=== PATIENT | male | born 1950 | race Hispanic/Latino ===

== ENCOUNTER 2017-04-20 02:56 | Inpatient (IN) | payer OTHER ==
[~2017-04-20] VITALS: Ht 172.7 cm; Wt 71.7 kg
[~2017-04-20 02:56] MED LIST: ACET650S30 RC; AMIO200T2 PO; AMLO5TAB4 PO; AMOX-426 PO; ASPI81TA40 PO; BALS60OI TP; CHLO118L5 TP; CHLO473M2 MM; CILO100T PO; CLOP75TA32 PO; ENOX30DI4 SQ; FAMO20TA8 PEG; FLUT100P6 NASAL; FOLI1CAP2 PEG; FOLI1TAB15 PEG; FURO40TA5 PEG; GLUC1KIT6 IM; HYDR25TA PO; INSU100I21 SQ; INSU100V3 SQ; IPRA3AMP4 IH; LACT10SO9 PEG; LISI40TA4 PO; LORA1TAB3 PO; METF500T6 PO; METO50TA18 PO; METO5TAB7 PEG; MIDO5TAB PEG; NAPR-1192 PEG; POLY15DR57 OP; PRAV40TA3 PO; THIAM100TB PEG; TRAZ-144 PEG; [UNRECOGNIZED DRUG - CODE] IJ
[2017-04-20 03:15] LABS: BASOPHILS % (AUTO) 0.3 % (0.0-5.0); EOSINOPHILS % (AUTO) 0.3 % (0.0-8.0); HEMATOCRIT 22.8 % (42-54); LYMPHOCYTES % (AUTO) 2.8 % (21.0-51.0); MEAN CORPUSCULAR HEMOGLOBIN 28.5 pg (27.0-33.0); MEAN CORPUSCULAR HGB CONC 33.1 g/dL (32.0-36.0); MEAN CORPUSCULAR VOLUME 85.9 fL (79-99); MONOCYTES % (AUTO) 6.7 % (3.0-13.0); NEUTROPHILS % (AUTO) 89.9 % (40.0-77.0); PLATELET COUNT (AUTO) 214 K/uL (130-400); RED BLOOD CELL COUNT(AUTO) 2.65 MIL/uL (4.50-6.20); RED CELL DISTRIBUTION WIDTH 17.2 % (11.0-15.5); WHITE BLOOD COUNT (AUTO) 12.3 K/uL (4.8-10.8)
[2017-04-20 03:31] LABS: CARBON DIOXIDE 21 mmol/L (21-32); CHLORIDE 101 mmol/L (101-111); CREATININE 2.5 mg/dL (0.5-1.5); GLOMERULAR FILTR. RATE CALC 27 mL/min (>60); GLUCOSE,RANDOM 112 mg/dL (70-105); INR 1.2 (0.85-1.15); PARTIAL THROMBOPLASTIN TIME 41.2 SEC (26.3-35.5); POTASSIUM 3.9 mmol/L (3.5-5.1); PROTHROMBIN TIME 12.6 SEC (9.6-11.6); SODIUM SERUM 134 mmol/L (136-145); UREA NITROGEN, BLOOD 58 mg/dL (7-18)
[2017-04-20] MEDS ORDERED: SODIUM CHLORIDE 0.9% 1000ML 2,000 ML IV ONE (03:41)
[2017-04-20] MEDS ORDERED: LEVOFLOXACIN 750 MG/D5W 150 ML 150 ML ONE (03:41)
[2017-04-20 03:46] LABS: ALANINE AMINOTRANSFERASE 32 U/L (12-78); ALBUMIN 1.9 g/dL (3.5-5.0); ASPARTATE AMINOTRANSFERASE 45 U/L (10-37); BILIRUBIN,TOTAL 0.5 mg/dL (0.2-1.0); CREATINE KINASE MB < 0.5 ng/mL (0.5-3.6); CREATINE KINASE, TOTAL 60 U/L (21-232); MYOGLOBIN 90 ng/mL (10-92); TOTAL PROTEIN, SERUM 6.9 g/dL (6.0-8.3); TROPONIN I 0.04 ng/mL (0.00-0.06)
[2017-04-20] MEDS ORDERED: ACETAMINOPHEN 325 MG TAB ONE (04:13)
[2017-04-20] MEDS ORDERED: ACETAMINOPHEN ELIXIR 650 MG/20.3 ML UDCUP ONE (04:14)
[2017-04-20] MEDS ORDERED: IPRATROPIUM/ALBUTEROL SULFATE 3 ML SOLUTION IH ONE (04:26)
[2017-04-20 04:31] LABS: APPEARANCE,URINE Cloudy (CLEAR); BILIRUBIN,URINE Negative (NEGATIVE); COLOR,URINE Yellow (YELLOW); GLUCOSE, URINE (UA) Negative (NEGATIVE); KETONES,URINE Negative (NEGATIVE); LEUKOCYTE ESTERASE ,URINE Moderate (NEGATIVE); NITRATE,URINE Negative (NEGATIVE); OCCULT BLOOD,URINE Small (NEGATIVE); PROTEIN,URINE POS 1+ (NEGATIVE)
[2017-04-20 04:55] LABS: BACTERIA,URINE Many /HPF (None Seen); MUCUS,URINE Few LPF (None Seen); RBC,URINE 0-1 /HPF (0-1); SQUAMOUS EPITHELIAL CELL,UR Rare /LPF (0-2)
[2017-04-20] MEDS ORDERED: SODIUM CHLORIDE 0.9% 1000ML 1,000 ML IV ONE ×2 (05:15→08:16)
[2017-04-20] MEDS ORDERED: ZOSYN 3.375GM+NS 50ML 50 ML IV ONE ×2 (08:16→08:34)
[2017-04-20] MEDS ORDERED: LACTULOSE 20 GM/30 ML UDCUP PO PRN ×2 (08:30→11:15)
[2017-04-20] MEDS ORDERED: LIDOCAINE HCL-MPF 1% 2ML VIAL IJ PRN (08:30)
[2017-04-20] MEDS ORDERED: CLONIDINE HCL 0.1 MG TABLET PO PRN (08:30)
[2017-04-20] MEDS: SODIUM CHLORIDE 0.9% 1000ML 1,000 ML IV SCH ×3 (08:30→22:53)
[2017-04-20] MEDS ORDERED: GUAIFENESIN-DM 200/20 MG 10 ML PO PRN ×2 (08:30→11:15)
[2017-04-20] MEDS ORDERED: POTASSIUM CHLORIDE 20 MEQ ERTAB PO PRN (08:30)
[2017-04-20] MEDS ORDERED: ACETAMINOPHEN 325 MG TAB PO PRN ×4 (08:30→11:15)
[2017-04-20] MEDS: ZOSYN 3.375GM+NS 50ML 50 ML IV SCH ×2 (09:00→22:33)
[2017-04-20] MEDS: FAMOTIDINE 20MG TAB 20 MG TAB PO SCH ×2 (09:00→19:59)
[2017-04-20] MEDS ORDERED: ALBUTEROL SULFATE 0.083% 2.5 MG/3 ML INH IH ONE (09:22)
[2017-04-20] MEDS ORDERED: IPRATROPIUM 0.5 MG/2.5 ML INH IH ONE (09:22)
[2017-04-20] MEDS: IPRATROPIUM/ALBUTEROL SULFATE 3 ML SOLUTION IH SCH ×4 (09:30→21:57)
[2017-04-20] MEDS ORDERED: ALPRAZOLAM 0.25 MG TABLET ONE (10:47)
[2017-04-20 10:57] LABS: ABG BASE EXCESS -7.1 mmol/L (-2.0-3.0); ABG HCO3 16.7 mmol/L (21.0-28.0); ABG OXYGEN SATURATION 85.3 % (95.0-99.0); ABG PCO2 30 mmHg (35-48)
[2017-04-20] MEDS ORDERED: NITROGLYCERIN 0.4 MG SL TAB SL PRN (11:15)
[2017-04-20] MEDS ORDERED: ONDANSETRON HCL 4 MG/2 ML VIAL IV PRN (11:15)
[2017-04-20] MEDS ORDERED: MAG HYDROX/AL HYDROX/SIMETH ES 30 ML SUSP UDCUP PO PRN (11:15)
[2017-04-20] MEDS: METHYLPREDNISOLONE SOD SUCC 125MG/2ML VIAL IVP SCH ×2 (11:15→18:54)
[2017-04-20] MEDS ORDERED: ACETAMINOPHEN-CODEINE 300/30MG TAB PO PRN ×2 (11:15)
[2017-04-20] MEDS ORDERED: MORPHINE SULFATE 4 MG/1ML SYG IV PRN (11:15)
[2017-04-20] MEDS ORDERED: MORPHINE SULFATE 2 MG/ML 1ML SYG IV PRN (11:15)
[2017-04-20] MEDS ORDERED: METHYLPREDNISOLONE SOD SUCC 125MG/2ML VIAL ONE (11:26)
[2017-04-20] MEDS ORDERED: FAMOTIDINE/PF 20 MG/2 ML VIAL IV ONE ×2 (11:27→12:06)
[2017-04-20] MEDS ORDERED: ENOXAPARIN SODIUM 40 MG/0.4 ML SYRINGE SQ ONE ×2 (11:27→12:05)
[2017-04-20] MEDS ORDERED: VANCOMYCIN PROTOCOL PER PHARMACY IV PRN (11:30)
[2017-04-20] MEDS ORDERED: VANCOMYCIN 1GM+NS 250ML 250 ML IV SCH (11:30)
[2017-04-20] MEDS ORDERED: SUCCINYLCHOLINE CHLORIDE 20 MG/ML 10 ML VIAL IVP ONE (12:00)
[2017-04-20] MEDS ORDERED: ETOMIDATE 2 MG/ML 10 ML VIAL IVP ONE (12:00)
[2017-04-20] MEDS ORDERED: DOXYCYCLINE 100MG+NS 250ML 250 ML IV ONE (12:05)
[2017-04-20] MEDS ORDERED: VANCOMYCIN 1GM+NS 250ML 250 ML IV ONE (12:06)
[2017-04-20] MEDS ORDERED: COMPOUND IV REFRIGERATED 1 EACH IVSOLN MISC PRN (12:45)
[2017-04-20 13:39] VITALS: BP 102/46
[2017-04-20 13:39] LABS: % IRON SATURATION 10.2 % (30-44); FERRITIN 295 ng/mL (30-400); IRON, SERUM 10 mcg/dL (65-175); TOTAL IRON BINDING CAPACITY 98 mcg/dL (250-450)
[2017-04-20] MEDS: IRON SUCROSE COMPLEX 100 MG in SODIUM CHLORIDE 0.9% 50 ML IV SCH (14:15)
[2017-04-20] MEDS ORDERED: COMPOUND IV MISC 1 EACH IVSOLN MISC PRN (14:45)
[2017-04-20 16:00] VITALS: BP 95/46
[2017-04-20 19:33] VITALS: BP 110/50
[2017-04-20] MEDS: FAMOTIDINE/PF 20 MG/2 ML VIAL IV SCH (22:33)
[2017-04-20 23:17] VITALS: BP 114/60
[2017-04-21] MEDS: IPRATROPIUM/ALBUTEROL SULFATE 3 ML SOLUTION IH SCH ×6 (01:34→21:24)
[2017-04-21] MEDS: METHYLPREDNISOLONE SOD SUCC 125MG/2ML VIAL IVP SCH ×3 (03:20→21:48)
[2017-04-21 03:38] VITALS: BP 93/50
[2017-04-21 04:50] LABS: ABG BASE EXCESS -7.1 mmol/L (-2.0-3.0); ABG HCO3 17.3 mmol/L (21.0-28.0); ABG OXYGEN SATURATION 90.1 % (95.0-99.0); ABG PCO2 32 mmHg (35-48)
[2017-04-21 04:53] LABS: HEMATOCRIT 22.3 % (42-54); MEAN CORPUSCULAR HEMOGLOBIN 27.8 pg (27.0-33.0); MEAN CORPUSCULAR HGB CONC 32.3 g/dL (32.0-36.0); MEAN CORPUSCULAR VOLUME 86.1 fL (79-99); NUCLEATED RED BLOOD CELLS 0.1 % (0.0-0.19); PLATELET COUNT (AUTO) 188 K/uL (130-400); RED BLOOD CELL COUNT(AUTO) 2.59 MIL/uL (4.50-6.20); RED CELL DISTRIBUTION WIDTH 17.1 % (11.0-15.5)
[2017-04-21 05:06] LABS: CREATININE 2.2 mg/dL (0.5-1.5); MAGNESIUM 1.6 mg/dL (1.80-2.40); PHOSPHORUS 4.7 mg/dL (2.5-4.9)
[2017-04-21 05:08] LABS: B-TYPE NATRIURETIC PEPTIDE 626 pg/mL (0-100)
[2017-04-21 07:00] VITALS: BP 101/52
[2017-04-21] MEDS: ENOXAPARIN SODIUM 40 MG/0.4 ML SYRINGE SQ SCH (09:00)
[2017-04-21] MEDS: FAMOTIDINE 20MG TAB 20 MG TAB PO SCH ×2 (09:00→20:59)
[2017-04-21] MEDS: IRON SUCROSE COMPLEX 100 MG in SODIUM CHLORIDE 0.9% 50 ML IV SCH (10:27)
[2017-04-21] MEDS: ZOSYN 3.375GM+NS 50ML 50 ML IV SCH ×2 (10:27→21:48)
[2017-04-21] MEDS: FAMOTIDINE/PF 20 MG/2 ML VIAL IV SCH ×2 (10:27→21:48)
[2017-04-21] MEDS ORDERED: INSU100V12 SQ (10:55)
[2017-04-21] MEDS ORDERED: FERR-82 PO (10:55)
[2017-04-21 11:00] VITALS: BP 102/76
[2017-04-21] MEDS: VANCOMYCIN 750MG + NS 250 ML IV SCH ×2 (12:45)
[2017-04-21] MEDS: SODIUM CHLORIDE 0.9% 1000ML 1,000 ML IV SCH (13:34)
[2017-04-21 15:56] LABS: GLUCOSE,BODY FLUID 303 mg/dL (1-40)
[2017-04-21 15:58] LABS: PH, BODY FLUID 7
[2017-04-21 17:00] VITALS: BP 97/49
[2017-04-21 17:52] LABS: APPEARANCE BODY FLUID CLEAR (CLEAR); COLOR,BODY FLUID YELLOW (LT YELLOW); SPECIMENTYPE,BODY FLUID PLEURAL; TOTAL VOLUME,BODY FLUID 1000 mL
[2017-04-21 17:53] LABS: BODY FLUID RBC 10 /cu. mm.; BODY FLUID WBC 54 /cu. mm.
[2017-04-21 18:46] LABS: BF LYMPHOCYTE 20 %
[2017-04-21 19:40] VITALS: BP 145/82
[2017-04-21 23:42] VITALS: BP 143/50
[2017-04-22] MEDS: IPRATROPIUM/ALBUTEROL SULFATE 3 ML SOLUTION IH SCH ×6 (01:26→22:21)
[2017-04-22 03:32] LABS: HEMATOCRIT 27.6 % (42-54); MEAN CORPUSCULAR HEMOGLOBIN 28.2 pg (27.0-33.0); MEAN CORPUSCULAR HGB CONC 32.3 g/dL (32.0-36.0); MEAN CORPUSCULAR VOLUME 87.3 fL (79-99); PLATELET COUNT (AUTO) 325 K/uL (130-400); RED BLOOD CELL COUNT(AUTO) 3.16 MIL/uL (4.50-6.20); RED CELL DISTRIBUTION WIDTH 17.7 % (11.0-15.5); WHITE BLOOD COUNT (AUTO) 17.4 K/uL (4.8-10.8)
[2017-04-22 03:35] VITALS: BP 121/54
[2017-04-22] MEDS: METHYLPREDNISOLONE SOD SUCC 125MG/2ML VIAL IVP SCH ×2 (03:39→22:05)
[2017-04-22 03:57] LABS: CREATININE 2.4 mg/dL (0.5-1.5); POTASSIUM 4.2 mmol/L (3.5-5.1)
[2017-04-22 07:31] VITALS: BP 118/68
[2017-04-22] MEDS: FAMOTIDINE/PF 20 MG/2 ML VIAL IV SCH ×2 (09:32→22:04)
[2017-04-22] MEDS ORDERED: SODIUM CHLORIDE 0.9% 500ML 500 ML IV ONE (09:35)
[2017-04-22] MEDS: ENOXAPARIN SODIUM 40 MG/0.4 ML SYRINGE SQ SCH (09:35)
[2017-04-22] MEDS: LEVOFLOXACIN 500 MG/D5W 100 ML 100 ML IV SCH (09:36)
[2017-04-22] MEDS: IRON SUCROSE COMPLEX 100 MG in SODIUM CHLORIDE 0.9% 50 ML IV SCH (09:36)
[2017-04-22] MEDS ORDERED: FUROSEMIDE 10 MG/ML 2ML VIAL IV SCH ×2 (10:15→10:45)
[2017-04-22] MEDS: ZOSYN 3.375GM+NS 50ML 50 ML IV SCH ×2 (10:37→22:05)
[2017-04-22 11:19] VITALS: BP 134/74
[2017-04-22] MEDS: VANCOMYCIN 750MG + NS 250 ML IV SCH ×2 (12:20)
[2017-04-22] MEDS: HALOPERIDOL LACTATE 5 MG/ML VIAL IM PRN ×2 (12:20→18:35)
[2017-04-22] MEDS ORDERED: METHYLPREDNISOLONE SOD SUCC 125MG/2ML VIAL IVP SCH (13:15)
[2017-04-22] MEDS: ALPRAZOLAM 0.25 MG TABLET PO PRN (14:45)
[2017-04-22 16:53] VITALS: BP 138/84
[2017-04-22] MEDS: FUROSEMIDE 10 MG/ML 2ML VIAL IV SCH (17:21)
[2017-04-22 19:04] VITALS: BP 97/70
[2017-04-22 20:56] LABS: ABG BASE EXCESS -11.1 mmol/L (-2.0-3.0); ABG HCO3 19.3 mmol/L (21.0-28.0); ABG OXYGEN SATURATION 94.9 % (95.0-99.0); ABG PCO2 69 mmHg (35-48)
[2017-04-22 21:46] LABS: HEMATOCRIT 29.2 % (42-54); MEAN CORPUSCULAR HEMOGLOBIN 27.6 pg (27.0-33.0); MEAN CORPUSCULAR HGB CONC 30.6 g/dL (32.0-36.0); MEAN CORPUSCULAR VOLUME 90.1 fL (79-99); NUCLEATED RED BLOOD CELLS 0.2 % (0.0-0.19); PLATELET COUNT (AUTO) 411 K/uL (130-400); RED BLOOD CELL COUNT(AUTO) 3.24 MIL/uL (4.50-6.20); RED CELL DISTRIBUTION WIDTH 17.7 % (11.0-15.5); WHITE BLOOD COUNT (AUTO) 24.3 K/uL (4.8-10.8)
[2017-04-22 21:56] LABS: ALBUMIN 2.2 g/dL (3.5-5.0); BILIRUBIN,TOTAL 0.3 mg/dL (0.2-1.0); CREATININE 2.6 mg/dL (0.5-1.5); MAGNESIUM 1.8 mg/dL (1.80-2.40); PHOSPHORUS 5.4 mg/dL (2.5-4.9); POTASSIUM 4.6 mmol/L (3.5-5.1); TOTAL PROTEIN, SERUM 7.7 g/dL (6.0-8.3)
[2017-04-22 22:03] LABS: PLATELET MORPHOLOGY COMMENT ADEQUATE; SEGMENTED NEUTROPHILS % 100 % (40-70)
[2017-04-22 22:32] LABS: ABG BASE EXCESS -9.9 mmol/L (-2.0-3.0); ABG HCO3 18.1 mmol/L (21.0-28.0); ABG OXYGEN SATURATION 95.4 % (95.0-99.0); ABG PCO2 48 mmHg (35-48)
[2017-04-22] MEDS ORDERED: SODIUM BICARB 50MEQ 50ML VIAL ONE (23:20)
[2017-04-22] MEDS: SODIUM BICARB 8.4% 50ML SYRINGE IVP SCH (23:23)
[2017-04-22 23:55] VITALS: BP 123/76
[2017-04-23] VITALS (26 sets, daily range): BP systolic 94–117; BP diastolic 53–70
[2017-04-23] MEDS: ALPRAZOLAM 0.25 MG TABLET PO PRN (02:16)
[2017-04-23] MEDS: IPRATROPIUM/ALBUTEROL SULFATE 3 ML SOLUTION IH SCH (02:19)
[2017-04-23 04:20] LABS: ABG BASE EXCESS -6.6 mmol/L (-2.0-3.0); ABG HCO3 19.5 mmol/L (21.0-28.0); ABG OXYGEN SATURATION 98.3 % (95.0-99.0); ABG PCO2 41 mmHg (35-48)
[2017-04-23 04:33] LABS: HEMATOCRIT 26.9 % (42-54); MEAN CORPUSCULAR HEMOGLOBIN 27.3 pg (27.0-33.0); MEAN CORPUSCULAR HGB CONC 31.2 g/dL (32.0-36.0); MEAN CORPUSCULAR VOLUME 87.5 fL (79-99); PLATELET COUNT (AUTO) 284 K/uL (130-400); RED BLOOD CELL COUNT(AUTO) 3.07 MIL/uL (4.50-6.20); RED CELL DISTRIBUTION WIDTH 17.8 % (11.0-15.5); WHITE BLOOD COUNT (AUTO) 18.4 K/uL (4.8-10.8)
[2017-04-23] MEDS: FUROSEMIDE 10 MG/ML 2ML VIAL IV SCH ×2 (04:43→17:40)
[2017-04-23 04:58] LABS: B-TYPE NATRIURETIC PEPTIDE 1510 pg/mL (0-100)
[2017-04-23 05:11] LABS: CREATINE KINASE MB 4.8 ng/mL (0.5-3.6); CREATININE 2.8 mg/dL (0.5-1.5); POTASSIUM 4.7 mmol/L (3.5-5.1); TROPONIN I 0.33 ng/mL (0.00-0.06)
[2017-04-23] MEDS ORDERED: NOREPINEPHRINE 4MG/NS 250ML 250 ML IV SCH (05:45)
[2017-04-23] MEDS: ACETYLCYSTEINE 20% 200MG/ML 4ML VIAL IH SCH ×3 (06:00→22:12)
[2017-04-23] MEDS: SODIUM CHLORIDE 0.9% 1000ML 1,000 ML IV SCH ×10 (06:00→21:25)
[2017-04-23] MEDS ORDERED: PROPOFOL 1000 MG/100 ML 100 ML IV ONE (06:41)
[2017-04-23] MEDS: IPRATROPIUM 0.5 MG/2.5 ML INH IH SCH ×5 (08:00→22:12)
[2017-04-23 08:38] LABS: ABG BASE EXCESS -7.4 mmol/L (-2.0-3.0); ABG HCO3 18.8 mmol/L (21.0-28.0); ABG OXYGEN SATURATION 96.4 % (95.0-99.0); ABG PCO2 41 mmHg (35-48)
[2017-04-23] MEDS: ENOXAPARIN SODIUM 40 MG/0.4 ML SYRINGE SQ SCH (09:55)
[2017-04-23] MEDS: METHYLPREDNISOLONE SOD SUCC 125MG/2ML VIAL IVP SCH ×2 (09:55→21:11)
[2017-04-23] MEDS: FAMOTIDINE/PF 20 MG/2 ML VIAL IV SCH ×2 (09:55→21:11)
[2017-04-23] MEDS: MIDAZOLAM 100MG-0.9% NS 100ML 100 ML IV PRN ×2 (09:56→23:58)
[2017-04-23] MEDS: ZOSYN 3.375GM+NS 50ML 50 ML IV SCH ×2 (09:56→21:11)
[2017-04-23] MEDS: IRON SUCROSE COMPLEX 100 MG in SODIUM CHLORIDE 0.9% 50 ML IV SCH (13:10)
[2017-04-23] MEDS: VANCOMYCIN 750MG + NS 250 ML IV SCH ×2 (13:10)
[2017-04-23] MEDS: SODIUM BICARB 8.4% 50ML SYRINGE IVP SCH (21:52)
[2017-04-24] VITALS (25 sets, daily range): BP systolic 86–124; BP diastolic 47–73
[2017-04-24] MEDS: IPRATROPIUM 0.5 MG/2.5 ML INH IH SCH ×6 (01:31→22:21)
[2017-04-24 04:42] LABS: HEMATOCRIT 23.5 % (42-54); MEAN CORPUSCULAR HEMOGLOBIN 28.1 pg (27.0-33.0); MEAN CORPUSCULAR HGB CONC 31.8 g/dL (32.0-36.0); MEAN CORPUSCULAR VOLUME 88.2 fL (79-99); NUCLEATED RED BLOOD CELLS 0.1 % (0.0-0.19); PLATELET COUNT (AUTO) 167 K/uL (130-400); RED BLOOD CELL COUNT(AUTO) 2.66 MIL/uL (4.50-6.20); WHITE BLOOD COUNT (AUTO) 8.1 K/uL (4.8-10.8)
[2017-04-24 04:50] LABS: BAND NEUTROPHILS % (MANUAL) 16 % (0-2); LYMPHOCYTES % (MANUAL) 5 % (22-44); MAN.DIFF COMMENT-IMPRESSION MANUAL DIFFERENTIAL; MONOCYTES % (MANUAL) 2 % (2-9); PLATELET MORPHOLOGY COMMENT ADEQUATE; SEGMENTED NEUTROPHILS % 77 % (40-70)
[2017-04-24 04:54] LABS: ALBUMIN 1.7 g/dL (3.5-5.0); BILIRUBIN,TOTAL 0.4 mg/dL (0.2-1.0); CREATININE 2.6 mg/dL (0.5-1.5); MAGNESIUM 1.9 mg/dL (1.80-2.40); PHOSPHORUS 4.5 mg/dL (2.5-4.9); POTASSIUM 4.8 mmol/L (3.5-5.1); TOTAL PROTEIN, SERUM 6.2 g/dL (6.0-8.3)
[2017-04-24] MEDS: FUROSEMIDE 10 MG/ML 2ML VIAL IV SCH (05:18)
[2017-04-24] MEDS: ACETYLCYSTEINE 20% 200MG/ML 4ML VIAL IH SCH ×3 (06:08→22:22)
[2017-04-24] MEDS ORDERED: DEXTROSE 5%-WATER 1,000 ML IV SCH (07:58)
[2017-04-24 08:12] LABS: ABG BASE EXCESS -5.3 mmol/L (-2.0-3.0); ABG HCO3 20.3 mmol/L (21.0-28.0); ABG OXYGEN SATURATION 99.7 % (95.0-99.0); ABG PCO2 40 mmHg (35-48)
[2017-04-24] MEDS ORDERED: DIGOXIN 250 MCG/ML 2ML AMP IV SCH (08:15)
[2017-04-24] MEDS: SODIUM CHLORIDE 0.9% 500ML 500 ML IV SCH ×3 (08:59→10:45)
[2017-04-24] MEDS: FAMOTIDINE/PF 20 MG/2 ML VIAL IV SCH ×2 (09:05→20:53)
[2017-04-24] MEDS: METHYLPREDNISOLONE SOD SUCC 125MG/2ML VIAL IVP SCH ×2 (09:06→20:53)
[2017-04-24] MEDS: ENOXAPARIN SODIUM 40 MG/0.4 ML SYRINGE SQ SCH (09:06)
[2017-04-24] MEDS: LEVOFLOXACIN 500 MG/D5W 100 ML 100 ML IV SCH (09:07)
[2017-04-24] MEDS: SODIUM CHLORIDE 0.9% 1000ML 1,000 ML IV SCH ×2 (11:00→11:15)
[2017-04-24] MEDS: IRON SUCROSE COMPLEX 100 MG in SODIUM CHLORIDE 0.9% 50 ML IV SCH (11:15)
[2017-04-24] MEDS: VANCOMYCIN 750MG + NS 250 ML IV SCH ×2 (12:29)
[2017-04-24] MEDS ORDERED: INSULIN DETEMIR 10ML 100 UNIT/ML 10ML SQ STA (13:19)
[2017-04-24] MEDS: CEFEPIME HCL 1 GM VIAL IVP SCH ×2 (13:47→21:57)
[2017-04-24] MEDS ORDERED: CEFEPIME 1GM+NS 50ML 50 ML IV SCH (14:00)
[2017-04-24] MEDS: MIDAZOLAM 100MG-0.9% NS 100ML 100 ML IV PRN (16:47)
[2017-04-24] MEDS: FENTANYL 2500MCG+NS 250ML 250 ML IV PRN (16:47)
[2017-04-24] MEDS ORDERED: INSULIN DETEMIR 10ML 100 UNIT/ML 10ML SQ SCH ×2 (21:00)
[2017-04-25] VITALS (28 sets, daily range): BP systolic 93–131; BP diastolic 48–72
[2017-04-25] MEDS: INSULIN HUMULIN R 100 UNIT/ML 3ML SQ SCH ×2 (00:26→06:19)
[2017-04-25] MEDS: IPRATROPIUM 0.5 MG/2.5 ML INH IH SCH ×5 (03:15→21:34)
[2017-04-25 04:32] LABS: HEMATOCRIT 26.3 % (42-54); MEAN CORPUSCULAR HEMOGLOBIN 27.4 pg (27.0-33.0); MEAN CORPUSCULAR HGB CONC 31.3 g/dL (32.0-36.0); MEAN CORPUSCULAR VOLUME 87.6 fL (79-99); PLATELET COUNT (AUTO) 157 K/uL (130-400); RED CELL DISTRIBUTION WIDTH 18.4 % (11.0-15.5); WHITE BLOOD COUNT (AUTO) 9.2 K/uL (4.8-10.8)
[2017-04-25 04:39] LABS: CREATININE 2.6 mg/dL (0.5-1.5); POTASSIUM 4.2 mmol/L (3.5-5.1)
[2017-04-25] MEDS: CEFEPIME HCL 1 GM VIAL IVP SCH ×3 (05:50→21:23)
[2017-04-25] MEDS: MIDAZOLAM 100MG-0.9% NS 100ML 100 ML IV PRN (08:49)
[2017-04-25] MEDS: ENOXAPARIN SODIUM 40 MG/0.4 ML SYRINGE SQ SCH (08:50)
[2017-04-25] MEDS: FAMOTIDINE/PF 20 MG/2 ML VIAL IV SCH ×2 (08:51→20:41)
[2017-04-25] MEDS: METHYLPREDNISOLONE SOD SUCC 125MG/2ML VIAL IVP SCH ×2 (08:51→20:42)
[2017-04-25] MEDS: ACETYLCYSTEINE 20% 200MG/ML 4ML VIAL IH SCH ×3 (09:59→21:34)
[2017-04-25] MEDS: IRON SUCROSE COMPLEX 100 MG in SODIUM CHLORIDE 0.9% 50 ML IV SCH (13:58)
[2017-04-25] MEDS: VANCOMYCIN 750MG + NS 250 ML IV SCH ×2 (13:59)
[2017-04-25] MEDS: FENTANYL 2500MCG+NS 250ML 250 ML IV PRN (20:23)
[2017-04-26] VITALS (24 sets, daily range): BP systolic 95–125; BP diastolic 46–99
[2017-04-26] MEDS: IPRATROPIUM 0.5 MG/2.5 ML INH IH SCH ×6 (01:16→22:23)
[2017-04-26 04:00] LABS: HEMATOCRIT 26.4 % (42-54); MEAN CORPUSCULAR HGB CONC 32.7 g/dL (32.0-36.0); MEAN CORPUSCULAR VOLUME 88.7 fL (79-99); PLATELET COUNT (AUTO) 148 K/uL (130-400); RED BLOOD CELL COUNT(AUTO) 2.98 MIL/uL (4.50-6.20); WHITE BLOOD COUNT (AUTO) 8.4 K/uL (4.8-10.8)
[2017-04-26 04:20] LABS: CREATININE 1.8 mg/dL (0.5-1.5); POTASSIUM 4.3 mmol/L (3.5-5.1)
[2017-04-26] MEDS: CEFEPIME HCL 1 GM VIAL IVP SCH ×3 (05:05→21:26)
[2017-04-26] MEDS: ACETYLCYSTEINE 20% 200MG/ML 4ML VIAL IH SCH ×3 (05:12→22:24)
[2017-04-26] MEDS: MIDAZOLAM 100MG-0.9% NS 100ML 100 ML IV PRN ×2 (08:11→17:30)
[2017-04-26] MEDS: LEVOFLOXACIN 500 MG/D5W 100 ML 100 ML IV SCH (09:12)
[2017-04-26] MEDS: METHYLPREDNISOLONE SOD SUCC 125MG/2ML VIAL IVP SCH ×2 (09:13→20:06)
[2017-04-26 10:32] LABS: INR 1.15 (0.85-1.15); PARTIAL THROMBOPLASTIN TIME 37.8 SEC (26.3-35.5)
[2017-04-26] MEDS: FAMOTIDINE/PF 20 MG/2 ML VIAL IV SCH ×2 (11:38→20:06)
[2017-04-26] MEDS: VANCOMYCIN 750MG + NS 250 ML IV SCH ×2 (12:46)
[2017-04-26] MEDS: IRON SUCROSE COMPLEX 100 MG in SODIUM CHLORIDE 0.9% 50 ML IV SCH (15:47)
[2017-04-26] MEDS: ENOXAPARIN SODIUM 40 MG/0.4 ML SYRINGE SQ SCH (17:31)
[2017-04-26] MEDS: INSULIN REGULAR, HUMAN 3ML 100 UNIT in SODIUM CHLORIDE 0.9% 99 ML IV PRN ×2 (20:06)
[2017-04-26] MEDS: FENTANYL 2500MCG+NS 250ML 250 ML IV PRN (23:37)
[2017-04-27] VITALS (24 sets, daily range): BP systolic 106–148; BP diastolic 50–96
[2017-04-27] MEDS: IPRATROPIUM 0.5 MG/2.5 ML INH IH SCH ×6 (02:20→22:48)
[2017-04-27 03:56] LABS: HEMATOCRIT 28.8 % (42-54); MEAN CORPUSCULAR HEMOGLOBIN 27.8 pg (27.0-33.0); MEAN CORPUSCULAR HGB CONC 31.3 g/dL (32.0-36.0); MEAN CORPUSCULAR VOLUME 88.9 fL (79-99); PLATELET COUNT (AUTO) 147 K/uL (130-400); RED BLOOD CELL COUNT(AUTO) 3.24 MIL/uL (4.50-6.20); RED CELL DISTRIBUTION WIDTH 18.2 % (11.0-15.5); WHITE BLOOD COUNT (AUTO) 8.1 K/uL (4.8-10.8)
[2017-04-27 04:08] LABS: CREATININE 1.6 mg/dL (0.5-1.5); POTASSIUM 4.5 mmol/L (3.5-5.1)
[2017-04-27] MEDS: MIDAZOLAM 100MG-0.9% NS 100ML 100 ML IV PRN (04:53)
[2017-04-27] MEDS: CEFEPIME HCL 1 GM VIAL IVP SCH ×3 (05:10→21:00)
[2017-04-27 07:35] LABS: ABG HCO3 23.2 mmol/L (21.0-28.0); ABG OXYGEN SATURATION 96.4 % (95.0-99.0); ABG PCO2 34 mmHg (35-48)
[2017-04-27] MEDS: LEVOFLOXACIN 500 MG/D5W 100 ML 100 ML IV SCH (09:12)
[2017-04-27] MEDS: METHYLPREDNISOLONE SOD SUCC 125MG/2ML VIAL IVP SCH ×2 (09:13→20:53)
[2017-04-27] MEDS: ENOXAPARIN SODIUM 40 MG/0.4 ML SYRINGE SQ SCH (09:13)
[2017-04-27] MEDS: FAMOTIDINE/PF 20 MG/2 ML VIAL IV SCH ×2 (09:13→20:52)
[2017-04-27] MEDS: ACETYLCYSTEINE 20% 200MG/ML 4ML VIAL IH SCH ×3 (10:40→22:48)
[2017-04-27] MEDS: IRON SUCROSE COMPLEX 100 MG in SODIUM CHLORIDE 0.9% 50 ML IV SCH (11:30)
[2017-04-27] MEDS: VANCOMYCIN 750MG + NS 250 ML IV SCH ×2 (14:13)
[2017-04-27] MEDS: INSULIN REGULAR, HUMAN 3ML 100 UNIT in SODIUM CHLORIDE 0.9% 99 ML IV PRN ×2 (20:58)
[2017-04-28] VITALS (24 sets, daily range): BP systolic 107–169; BP diastolic 44–93
[2017-04-28] MEDS: IPRATROPIUM 0.5 MG/2.5 ML INH IH SCH ×6 (01:21→21:55)
[2017-04-28 04:04] LABS: HEMATOCRIT 30.3 % (42-54); MEAN CORPUSCULAR HEMOGLOBIN 27.2 pg (27.0-33.0); MEAN CORPUSCULAR VOLUME 87.7 fL (79-99); PLATELET COUNT (AUTO) 124 K/uL (130-400); RED BLOOD CELL COUNT(AUTO) 3.45 MIL/uL (4.50-6.20); WHITE BLOOD COUNT (AUTO) 7.3 K/uL (4.8-10.8)
[2017-04-28 04:20] LABS: CREATININE 1.4 mg/dL (0.5-1.5); POTASSIUM 4.9 mmol/L (3.5-5.1)
[2017-04-28] MEDS: CEFEPIME HCL 1 GM VIAL IVP SCH ×3 (05:31→21:00)
[2017-04-28] MEDS: MIDAZOLAM 100MG-0.9% NS 100ML 100 ML IV PRN (05:32)
[2017-04-28] MEDS: ACETYLCYSTEINE 20% 200MG/ML 4ML VIAL IH SCH ×3 (06:22→22:00)
[2017-04-28] MEDS: FAMOTIDINE/PF 20 MG/2 ML VIAL IV SCH ×2 (08:28→20:58)
[2017-04-28] MEDS: ENOXAPARIN SODIUM 40 MG/0.4 ML SYRINGE SQ SCH (08:28)
[2017-04-28] MEDS: METHYLPREDNISOLONE SOD SUCC 125MG/2ML VIAL IVP SCH ×2 (08:28→20:58)
[2017-04-28] MEDS: LEVOFLOXACIN 500 MG/D5W 100 ML 100 ML IV SCH (08:28)
[2017-04-28] MEDS: IRON SUCROSE COMPLEX 100 MG in SODIUM CHLORIDE 0.9% 50 ML IV SCH (08:58)
[2017-04-28] MEDS: VANCOMYCIN 750MG + NS 250 ML IV SCH ×2 (12:33)
[2017-04-28] MEDS ORDERED: PHARMACY COMMUNICATION MISC SCH ×2 (14:00→16:15)
[2017-04-28] MEDS ORDERED: SODIUM CHLORIDE 0.9% 1000ML 1,000 ML IV ONE (14:12)
[2017-04-29] VITALS (24 sets, daily range): BP systolic 106–181; BP diastolic 49–99
[2017-04-29] MEDS: IPRATROPIUM 0.5 MG/2.5 ML INH IH SCH ×6 (01:41→23:22)
[2017-04-29] MEDS: INSULIN REGULAR, HUMAN 3ML 100 UNIT in SODIUM CHLORIDE 0.9% 99 ML IV PRN ×2 (03:43)
[2017-04-29 05:25] LABS: MEAN CORPUSCULAR HEMOGLOBIN 27.7 pg (27.0-33.0); MEAN CORPUSCULAR HGB CONC 31.6 g/dL (32.0-36.0); MEAN CORPUSCULAR VOLUME 87.8 fL (79-99); NUCLEATED RED BLOOD CELLS 0.1 % (0.0-0.19); PLATELET COUNT (AUTO) 96 K/uL (130-400); RED CELL DISTRIBUTION WIDTH 18.9 % (11.0-15.5); WHITE BLOOD COUNT (AUTO) 8.8 K/uL (4.8-10.8)
[2017-04-29 05:37] LABS: CREATININE 1.3 mg/dL (0.5-1.5); POTASSIUM 4.7 mmol/L (3.5-5.1)
[2017-04-29] MEDS: CEFEPIME HCL 1 GM VIAL IVP SCH ×3 (05:38→22:29)
[2017-04-29] MEDS ORDERED: ACETYLCYSTEINE 20% 200MG/ML 4ML VIAL ONE (06:06)
[2017-04-29] MEDS: ACETYLCYSTEINE 20% 200MG/ML 4ML VIAL IH SCH ×3 (06:27→22:00)
[2017-04-29] MEDS: FENTANYL 2500MCG+NS 250ML 250 ML IV PRN (07:37)
[2017-04-29] MEDS ORDERED: PHARMACY COMMUNICATION MISC SCH (08:30)
[2017-04-29] MEDS: FAMOTIDINE/PF 20 MG/2 ML VIAL IV SCH ×2 (09:07→22:29)
[2017-04-29] MEDS: METHYLPREDNISOLONE SOD SUCC 125MG/2ML VIAL IVP SCH (09:07)
[2017-04-29] MEDS: HYDRALAZINE HCL 20 MG/ML VIAL IV PRN (09:41)
[2017-04-29] MEDS: IRON SUCROSE COMPLEX 100 MG in SODIUM CHLORIDE 0.9% 50 ML IV SCH (09:41)
[2017-04-29] MEDS ORDERED: COMPOUND IV REFRIGERATED 1 EACH IVSOLN MISC PRN (09:45)
[2017-04-29] MEDS: CEFTAZIDIME/AVIBACTAM 2.5 GM in SODIUM CHLORIDE 0.9% 100 ML IV SCH ×2 (10:13→18:06)
[2017-04-29] MEDS: ENOXAPARIN SODIUM 40 MG/0.4 ML SYRINGE SQ SCH (10:13)
[2017-04-29] MEDS: VANCOMYCIN 750MG + NS 250 ML IV SCH ×2 (13:12)
[2017-04-29] MEDS ORDERED: DEXTROSE 5%-WATER 1,000 ML IV ONE (16:00)
[2017-04-29] MEDS: DEXTROSE 5%-WATER 1,000 ML IV SCH (16:00)
[2017-04-29] MEDS: MIDAZOLAM 100MG-0.9% NS 100ML 100 ML IV PRN (17:04)
[2017-04-29] MEDS ORDERED: METHYLPREDNISOLONE SOD SUCC 40MG/ML 1ML IVP SCH (20:35)
[2017-04-30] VITALS (24 sets, daily range): BP systolic 109–156; BP diastolic 62–84
[2017-04-30] MEDS: FENTANYL 2500MCG+NS 250ML 250 ML IV PRN (02:08)
[2017-04-30] MEDS: IPRATROPIUM 0.5 MG/2.5 ML INH IH SCH ×5 (02:54→22:08)
[2017-04-30] MEDS: CEFTAZIDIME/AVIBACTAM 2.5 GM in SODIUM CHLORIDE 0.9% 100 ML IV SCH ×3 (02:54→18:47)
[2017-04-30 04:01] LABS: ALBUMIN 1.4 g/dL (3.5-5.0); BILIRUBIN,TOTAL 0.3 mg/dL (0.2-1.0); CREATININE 1.3 mg/dL (0.5-1.5); MAGNESIUM 1.5 mg/dL (1.80-2.40); PHOSPHORUS 2.2 mg/dL (2.5-4.9); POTASSIUM 4.6 mmol/L (3.5-5.1); TOTAL PROTEIN, SERUM 5.5 g/dL (6.0-8.3)
[2017-04-30 04:03] LABS: HEMATOCRIT 26.9 % (42-54); MEAN CORPUSCULAR HEMOGLOBIN 28.4 pg (27.0-33.0); MEAN CORPUSCULAR HGB CONC 32.2 g/dL (32.0-36.0); MEAN CORPUSCULAR VOLUME 88.1 fL (79-99); PLATELET COUNT (AUTO) 66 K/uL (130-400); RED BLOOD CELL COUNT(AUTO) 3.05 MIL/uL (4.50-6.20); RED CELL DISTRIBUTION WIDTH 19.3 % (11.0-15.5)
[2017-04-30] MEDS: CEFEPIME HCL 1 GM VIAL IVP SCH (06:19)
[2017-04-30] MEDS: DEXTROSE 5%-WATER 1,000 ML IV SCH ×2 (06:19→18:10)
[2017-04-30] MEDS: INSULIN REGULAR, HUMAN 3ML 100 UNIT in SODIUM CHLORIDE 0.9% 99 ML IV PRN ×2 (07:02)
[2017-04-30] MEDS ORDERED: MAGNESIUM 2GM PREMIX 50ML 50 ML IV SCH (07:15)
[2017-04-30] MEDS: LEVOFLOXACIN 500 MG/D5W 100 ML 100 ML IV SCH (08:32)
[2017-04-30] MEDS: FAMOTIDINE/PF 20 MG/2 ML VIAL IV SCH ×2 (08:33→23:12)
[2017-04-30] MEDS: IRON SUCROSE COMPLEX 100 MG in SODIUM CHLORIDE 0.9% 50 ML IV SCH (08:33)
[2017-04-30] MEDS: INSULIN GLARGINE 100 UNITS/ML 10 ML VIAL SQ SCH (08:40)
[2017-04-30] MEDS: METHYLPREDNISOLONE SOD SUCC 40MG/ML 1ML IVP SCH (08:42)
[2017-04-30] MEDS: FUROSEMIDE 10 MG/ML 4ML VIAL IV SCH ×2 (14:21→23:12)
[2017-04-30] MEDS: VANCOMYCIN 750MG + NS 250 ML IV SCH ×2 (14:21)
[2017-04-30] MEDS: MIDAZOLAM 100MG-0.9% NS 100ML 100 ML IV PRN (19:11)
[2017-04-30] MEDS: INSULIN HUMULIN R 100 UNIT/ML 3ML SQ SCH (21:00)
[2017-05-01] VITALS (22 sets, daily range): BP systolic 102–155; BP diastolic 49–74
[2017-05-01] MEDS: FENTANYL 2500MCG+NS 250ML 250 ML IV PRN ×2 (02:00→18:21)
[2017-05-01] MEDS: CEFTAZIDIME/AVIBACTAM 2.5 GM in SODIUM CHLORIDE 0.9% 100 ML IV SCH ×3 (02:05→18:14)
[2017-05-01] MEDS: IPRATROPIUM 0.5 MG/2.5 ML INH IH SCH ×6 (02:08→21:47)
[2017-05-01 03:53] LABS: HEMATOCRIT 30.5 % (42-54); MEAN CORPUSCULAR HEMOGLOBIN 27.5 pg (27.0-33.0); MEAN CORPUSCULAR HGB CONC 31.5 g/dL (32.0-36.0); MEAN CORPUSCULAR VOLUME 87.4 fL (79-99); PLATELET COUNT (AUTO) 59 K/uL (130-400); RED BLOOD CELL COUNT(AUTO) 3.49 MIL/uL (4.50-6.20); RED CELL DISTRIBUTION WIDTH 19.3 % (11.0-15.5); WHITE BLOOD COUNT (AUTO) 7.3 K/uL (4.8-10.8)
[2017-05-01 03:59] LABS: CREATININE 1.3 mg/dL (0.5-1.5); POTASSIUM 3.7 mmol/L (3.5-5.1)
[2017-05-01] MEDS: INSULIN HUMULIN R 100 UNIT/ML 3ML SQ SCH ×4 (07:30→21:56)
[2017-05-01] MEDS ORDERED: MIDAZOLAM HCL 1 MG/ML 2ML VIAL ONE (08:45)
[2017-05-01] MEDS ORDERED: FENTANYL CITRATE PF 50 MCG/1 ML 2ML VIAL ONE (08:45)
[2017-05-01] MEDS: FUROSEMIDE 10 MG/ML 4ML VIAL IV SCH ×3 (09:18→21:52)
[2017-05-01] MEDS: IRON SUCROSE COMPLEX 100 MG in SODIUM CHLORIDE 0.9% 50 ML IV SCH (09:18)
[2017-05-01] MEDS: METHYLPREDNISOLONE SOD SUCC 40MG/ML 1ML IVP SCH (09:18)
[2017-05-01] MEDS: FAMOTIDINE/PF 20 MG/2 ML VIAL IV SCH ×2 (09:19→21:52)
[2017-05-01] MEDS: QUETIAPINE FUMARATE 25 MG TAB PO SCH ×2 (09:19→21:52)
[2017-05-01] MEDS: INSULIN GLARGINE 100 UNITS/ML 10 ML VIAL SQ SCH (09:22)
[2017-05-01] MEDS: DEXTROSE 5%-WATER 1,000 ML IV SCH ×2 (09:37→21:50)
[2017-05-01] MEDS: VANCOMYCIN 750MG + NS 250 ML IV SCH ×2 (16:28)
[2017-05-01] MEDS: MIDAZOLAM 100MG-0.9% NS 100ML 100 ML IV PRN (17:35)
[2017-05-02] VITALS (24 sets, daily range): BP systolic 107–173; BP diastolic 53–92
[2017-05-02] MEDS: IPRATROPIUM 0.5 MG/2.5 ML INH IH SCH ×6 (02:06→22:27)
[2017-05-02] MEDS: CEFTAZIDIME/AVIBACTAM 2.5 GM in SODIUM CHLORIDE 0.9% 100 ML IV SCH ×4 (02:56→18:09)
[2017-05-02 05:27] LABS: HEMATOCRIT 27.3 % (42-54); MEAN CORPUSCULAR HEMOGLOBIN 28.1 pg (27.0-33.0); MEAN CORPUSCULAR HGB CONC 32.7 g/dL (32.0-36.0); MEAN CORPUSCULAR VOLUME 85.8 fL (79-99); PLATELET COUNT (AUTO) 49 K/uL (130-400); RED BLOOD CELL COUNT(AUTO) 3.19 MIL/uL (4.50-6.20); RED CELL DISTRIBUTION WIDTH 19.3 % (11.0-15.5)
[2017-05-02 05:41] LABS: CREATININE 1.5 mg/dL (0.5-1.5); POTASSIUM 3.3 mmol/L (3.5-5.1)
[2017-05-02] MEDS: LEVOFLOXACIN 500 MG/D5W 100 ML 100 ML IV SCH (07:53)
[2017-05-02] MEDS: METHYLPREDNISOLONE SOD SUCC 40MG/ML 1ML IVP SCH (07:54)
[2017-05-02] MEDS: FAMOTIDINE/PF 20 MG/2 ML VIAL IV SCH ×2 (07:54→20:58)
[2017-05-02] MEDS: QUETIAPINE FUMARATE 25 MG TAB PO SCH ×2 (07:54→20:58)
[2017-05-02] MEDS: FUROSEMIDE 10 MG/ML 4ML VIAL IV SCH ×3 (07:54→22:14)
[2017-05-02] MEDS: INSULIN GLARGINE 100 UNITS/ML 10 ML VIAL SQ SCH (07:57)
[2017-05-02] MEDS: INSULIN HUMULIN R 100 UNIT/ML 3ML SQ SCH ×3 (07:58→17:29)
[2017-05-02] MEDS: DEXTROSE 5%-WATER 1,000 ML IV SCH (10:34)
[2017-05-02] MEDS: IRON SUCROSE COMPLEX 100 MG in SODIUM CHLORIDE 0.9% 50 ML IV SCH (10:34)
[2017-05-02] MEDS: VANCOMYCIN 1GM+NS 250ML 250 ML IV SCH (12:02)
[2017-05-02] MEDS: LORAZEPAM 2 MG/ML 1 ML VIAL IVP PRN ×2 (17:28→22:21)
[2017-05-03] VITALS (26 sets, daily range): BP systolic 104–176; BP diastolic 54–94
[2017-05-03] MEDS: FENTANYL CITRATE PF 50 MCG/1 ML 2ML VIAL IVP PRN ×4 (00:02→18:05)
[2017-05-03] MEDS: INSULIN HUMULIN R 100 UNIT/ML 3ML SQ SCH ×5 (00:23→17:58)
[2017-05-03] MEDS: IPRATROPIUM 0.5 MG/2.5 ML INH IH SCH ×6 (01:41→22:54)
[2017-05-03] MEDS: CEFTAZIDIME/AVIBACTAM 2.5 GM in SODIUM CHLORIDE 0.9% 100 ML IV SCH ×3 (02:00→17:54)
[2017-05-03] MEDS: LORAZEPAM 2 MG/ML 1 ML VIAL IVP PRN ×3 (03:35→14:46)
[2017-05-03 04:32] LABS: HEMATOCRIT 28.3 % (42-54); MEAN CORPUSCULAR HEMOGLOBIN 27.5 pg (27.0-33.0); MEAN CORPUSCULAR HGB CONC 32.2 g/dL (32.0-36.0); MEAN CORPUSCULAR VOLUME 85.4 fL (79-99); PLATELET COUNT (AUTO) 48 K/uL (130-400); RED BLOOD CELL COUNT(AUTO) 3.31 MIL/uL (4.50-6.20); RED CELL DISTRIBUTION WIDTH 19.1 % (11.0-15.5); WHITE BLOOD COUNT (AUTO) 7.6 K/uL (4.8-10.8)
[2017-05-03 04:36] LABS: INR 1.07 (0.85-1.15); PARTIAL THROMBOPLASTIN TIME 36.9 SEC (26.3-35.5); PROTHROMBIN TIME 11.2 SEC (9.6-11.6)
[2017-05-03 04:44] LABS: CREATININE 1.4 mg/dL (0.5-1.5)
[2017-05-03 04:45] LABS: POTASSIUM 2.9 mmol/L (3.5-5.1)
[2017-05-03] MEDS: FUROSEMIDE 10 MG/ML 4ML VIAL IV SCH ×3 (05:42→23:05)
[2017-05-03] MEDS: DEXTROSE 5%-WATER 1,000 ML IV SCH (05:42)
[2017-05-03] MEDS: POTASSIUM CHLORIDE 20MEQ/100ML 100 ML IV PRN ×2 (05:43→14:45)
[2017-05-03] MEDS: HYDRALAZINE HCL 20 MG/ML VIAL IV PRN (05:43)
[2017-05-03] MEDS: ACETYLCYSTEINE 20% 200MG/ML 4ML VIAL IH SCH (06:00)
[2017-05-03] MEDS: QUETIAPINE FUMARATE 25 MG TAB PO SCH ×2 (07:56→21:08)
[2017-05-03] MEDS: INSULIN GLARGINE 100 UNITS/ML 10 ML VIAL SQ SCH (07:58)
[2017-05-03] MEDS: FAMOTIDINE/PF 20 MG/2 ML VIAL IV SCH ×2 (09:20→21:08)
[2017-05-03] MEDS: IRON SUCROSE COMPLEX 100 MG in SODIUM CHLORIDE 0.9% 50 ML IV SCH (09:20)
[2017-05-03] MEDS: METHYLPREDNISOLONE SOD SUCC 40MG/ML 1ML IVP SCH (09:20)
[2017-05-03] MEDS: VANCOMYCIN 1GM+NS 250ML 250 ML IV SCH (12:32)
[2017-05-04] VITALS (24 sets, daily range): BP systolic 95–168; BP diastolic 53–79
[2017-05-04] MEDS: CEFTAZIDIME/AVIBACTAM 2.5 GM in SODIUM CHLORIDE 0.9% 100 ML IV SCH (01:36)
[2017-05-04] MEDS: IPRATROPIUM 0.5 MG/2.5 ML INH IH SCH ×6 (02:22→22:16)
[2017-05-04 04:48] LABS: HEMATOCRIT 28.8 % (42-54); MEAN CORPUSCULAR HEMOGLOBIN 27.5 pg (27.0-33.0); MEAN CORPUSCULAR HGB CONC 32.5 g/dL (32.0-36.0); MEAN CORPUSCULAR VOLUME 84.6 fL (79-99); PLATELET COUNT (AUTO) 58 K/uL (130-400); RED CELL DISTRIBUTION WIDTH 19.1 % (11.0-15.5); WHITE BLOOD COUNT (AUTO) 7.4 K/uL (4.8-10.8)
[2017-05-04 05:16] LABS: CREATININE 1.5 mg/dL (0.5-1.5); POTASSIUM 3.4 mmol/L (3.5-5.1)
[2017-05-04] MEDS: INSULIN HUMULIN R 100 UNIT/ML 3ML SQ SCH ×4 (06:17→21:00)
[2017-05-04] MEDS: POTASSIUM CHLORIDE 10% ELIXIR 20 MEQ/15 ML UDCUP PO PRN ×2 (06:37→08:18)
[2017-05-04] MEDS: LEVOFLOXACIN 500 MG/D5W 100 ML 100 ML IV SCH (07:52)
[2017-05-04] MEDS: INSULIN GLARGINE 100 UNITS/ML 10 ML VIAL SQ SCH (07:54)
[2017-05-04] MEDS: QUETIAPINE FUMARATE 25 MG TAB PO SCH ×2 (08:15→21:17)
[2017-05-04] MEDS: FAMOTIDINE/PF 20 MG/2 ML VIAL IV SCH ×2 (08:15→21:17)
[2017-05-04] MEDS: METHYLPREDNISOLONE SOD SUCC 40MG/ML 1ML IVP SCH (08:15)
[2017-05-04] MEDS: FUROSEMIDE 10 MG/ML 4ML VIAL IV SCH ×2 (08:16→21:18)
[2017-05-04] MEDS ORDERED: POTASSIUM CHLORIDE 20 MEQ in DEXTROSE 5%-WATER 1,000 ML IV SCH (08:30)
[2017-05-04] MEDS: IRON SUCROSE COMPLEX 100 MG in SODIUM CHLORIDE 0.9% 50 ML IV SCH (12:48)
[2017-05-04] MEDS: VANCOMYCIN 1GM+NS 250ML 250 ML IV SCH (12:48)
[2017-05-04] MEDS: SODIUM CHLORIDE 0.9% IV SCH ×2 (14:32→22:23)
[2017-05-04] MEDS: AVIBACTAM IV SCH ×2 (14:32→22:23)
[2017-05-04] MEDS: CEFTAZIDIME IV SCH ×2 (14:32→22:23)
[2017-05-05] VITALS (9 sets, daily range): BP systolic 111–144; BP diastolic 64–79
[2017-05-05] MEDS: IPRATROPIUM 0.5 MG/2.5 ML INH IH SCH ×2 (01:44→07:03)
[2017-05-05 04:36] LABS: HEMATOCRIT 27.7 % (42-54); MEAN CORPUSCULAR HEMOGLOBIN 27.2 pg (27.0-33.0); MEAN CORPUSCULAR HGB CONC 32.3 g/dL (32.0-36.0); MEAN CORPUSCULAR VOLUME 84.5 fL (79-99); PLATELET COUNT (AUTO) 66 K/uL (130-400); RED BLOOD CELL COUNT(AUTO) 3.28 MIL/uL (4.50-6.20); RED CELL DISTRIBUTION WIDTH 19.1 % (11.0-15.5); WHITE BLOOD COUNT (AUTO) 7.8 K/uL (4.8-10.8)
[2017-05-05 04:50] LABS: CREATININE 1.4 mg/dL (0.5-1.5); POTASSIUM 3.5 mmol/L (3.5-5.1)
[2017-05-05] MEDS: INSULIN HUMULIN R 100 UNIT/ML 3ML SQ SCH (05:25)
[2017-05-05] MEDS: POTASSIUM CHLORIDE 20MEQ/100ML 100 ML IV PRN (06:02)
[2017-05-05] MEDS: FUROSEMIDE 10 MG/ML 4ML VIAL IV SCH (08:41)
[2017-05-05] MEDS: FAMOTIDINE/PF 20 MG/2 ML VIAL IV SCH (08:42)
[2017-05-05] MEDS: QUETIAPINE FUMARATE 25 MG TAB PO SCH (08:42)
[2017-05-05] MEDS: METHYLPREDNISOLONE SOD SUCC 40MG/ML 1ML IVP SCH (08:42)
[2017-05-05] MEDS: INSULIN GLARGINE 100 UNITS/ML 10 ML VIAL SQ SCH (08:43)
== END 2017-05-05 12:49 | disposition hospice, inpatient (51) | DRG 870 ==
LOC: EDH 02:56 → EDHIP 07:20 → 2AH 13:02 → 2CV 04-23 06:56 → 2CH 04-23 10:17 → 2BH 04-26 19:33
PROVIDERS: ADMIT Family Medicine; ATTEND Family Medicine
PROC: 5A09357 Assistance with Respiratory Ventilation, Less than 24 Consecutive Hours, Continuous Positive Airway Pressure (ICD-10-PCS; 2017-04-20)
PROC: 0W993ZZ Drainage of Right Pleural Cavity, Percutaneous Approach (ICD-10-PCS; 2017-04-21)
PROC: 5A09357 Assistance with Respiratory Ventilation, Less than 24 Consecutive Hours, Continuous Positive Airway Pressure (ICD-10-PCS; 2017-04-21)
PROC: 5A09357 Assistance with Respiratory Ventilation, Less than 24 Consecutive Hours, Continuous Positive Airway Pressure (ICD-10-PCS; 2017-04-22)
PROC: 5A1955Z Respiratory Ventilation, Greater than 96 Consecutive Hours (ICD-10-PCS; principal; 2017-04-23)
PROC: 0BH17EZ Insertion of Endotracheal Airway into Trachea, Via Natural or Artificial Opening (ICD-10-PCS; 2017-04-23)
PROC: 5A09357 Assistance with Respiratory Ventilation, Less than 24 Consecutive Hours, Continuous Positive Airway Pressure (ICD-10-PCS; 2017-04-23)
PROC: 02WAX3Z Revision of Infusion Device in Heart, External Approach (ICD-10-PCS; 2017-05-05)
DX: A41.50 Gram-negative sepsis, unspecified (principal); J96.21 Acute and chronic respiratory failure with hypoxia; R65.21 Severe sepsis with septic shock; G93.40 Encephalopathy, unspecified; L89.154 Pressure ulcer of sacral region, stage 4; J15.6 Pneumonia due to other Gram-negative bacteria; I50.23 Acute on chronic systolic (congestive) heart failure; N17.9 Acute kidney failure, unspecified; I13.0 Hypertensive heart and chronic kidney disease with heart failure and stage 1 through stage 4 chronic kidney disease, or unspecified chronic kidney disease; E11.52 Type 2 diabetes mellitus with diabetic peripheral angiopathy with gangrene; E87.0 Hyperosmolality and hypernatremia; L97.409 Non-pressure chronic ulcer of unspecified heel and midfoot with unspecified severity; N39.0 Urinary tract infection, site not specified; L02.31 Cutaneous abscess of buttock; F10.239 Alcohol dependence with withdrawal, unspecified; I42.9 Cardiomyopathy, unspecified; L02.612 Cutaneous abscess of left foot; L97.419 Non-pressure chronic ulcer of right heel and midfoot with unspecified severity; L97.429 Non-pressure chronic ulcer of left heel and midfoot with unspecified severity; Z51.5 Encounter for palliative care; Z66 Do not resuscitate; E11.22 Type 2 diabetes mellitus with diabetic chronic kidney disease; D69.6 Thrombocytopenia, unspecified; N18.3 Chronic kidney disease, stage 3 (moderate); I12.9 Hypertensive chronic kidney disease with stage 1 through stage 4 chronic kidney disease, or unspecified chronic kidney disease; Z93.1 Gastrostomy status; B96.1 Klebsiella pneumoniae [K. pneumoniae] as the cause of diseases classified elsewhere; D63.1 Anemia in chronic kidney disease; E11.622 Type 2 diabetes mellitus with other skin ulcer; E11.621 Type 2 diabetes mellitus with foot ulcer; E78.5 Hyperlipidemia, unspecified; E11.65 Type 2 diabetes mellitus with hyperglycemia; E87.6 Hypokalemia; F03.90 Unspecified dementia, unspecified severity, without behavioral disturbance, psychotic disturbance, mood disturbance, and anxiety; E11.42 Type 2 diabetes mellitus with diabetic polyneuropathy; I35.0 Nonrheumatic aortic (valve) stenosis; I25.10 Atherosclerotic heart disease of native coronary artery without angina pectoris; I48.91 Unspecified atrial fibrillation; K74.60 Unspecified cirrhosis of liver; L97.519 Non-pressure chronic ulcer of other part of right foot with unspecified severity; L97.529 Non-pressure chronic ulcer of other part of left foot with unspecified severity; L98.419 Non-pressure chronic ulcer of buttock with unspecified severity; F10.20 Alcohol dependence, uncomplicated; Z16.24 Resistance to multiple antibiotics; D64.9 Anemia, unspecified; Z82.49 Family history of ischemic heart disease and other diseases of the circulatory system; Z86.718 Personal history of other venous thrombosis and embolism; Z86.73 Personal history of transient ischemic attack (TIA), and cerebral infarction without residual deficits; Z79.4 Long term (current) use of insulin; Z83.3 Family history of diabetes mellitus; Z89.519 Acquired absence of unspecified leg below knee; Z95.1 Presence of aortocoronary bypass graft; Z95.2 Presence of prosthetic heart valve
CPT/HCPCS: 31500; 31720; 32555; 36415; 36600; 71045; 71250; 74018; 76770; 80048; 80053; 80202; 81001; 82330; 82435; 82550; 82553; 82607; 82728; 82746; 82803; 82945; 82947; 82948; 83605; 83615; 83735; 83874; 83880; 83986; 84100; 84132; 84157; 84295; 84484; 85018; 85025; 85027; 85610; 85730; 86850; 86900; 86901; 87040; 87070; 87071; 87076; 87088; 87186; 87205; 87804; 88108; 88305; 89051; 93005; 93306; 94002; 94003; 94640; 94660; 94664; 99291; A4218; A4344; C1751; C1894; J0330; J0360; J0692; J0714; J1630; J1650; J1756; J1815; J1940; J1956; J2060; J2250; J2543; J2704; J2920; J2930; J3010; J3370; J3475; J3480; J3490; J7030; J7040; J7070; J7608

== ENCOUNTER 2017-05-05 12:50 | Inpatient (IN) | payer OTHER ==
[~2017-05-05 12:50] MED LIST changes: -AMOX-426 PO; -BALS60OI TP; -CHLO118L5 TP; -CHLO473M2 MM; -ENOX30DI4 SQ; +FERR-82 PO; -HYDR25TA PO; +INSU100V12 SQ; -IPRA3AMP4 IH; -LACT10SO9 PEG; -MIDO5TAB PEG; -NAPR-1192 PEG; -POLY15DR57 OP; -THIAM100TB PEG; -[UNRECOGNIZED DRUG - CODE] IJ
[2017-05-05] MEDS ORDERED: MORPHINE SULFATE 2 MG/ML 1ML SYG IVP PRN (19:30)
[2017-05-05] MEDS ORDERED: ONDANSETRON HCL 4 MG/2 ML VIAL IVP PRN (19:30)
[2017-05-05] MEDS ORDERED: BISACODYL 10 MG SUPP.RECT RC PRN (19:30)
[2017-05-05] MEDS ORDERED: GLYCOPYRROLATE 0.2 MG/ML 5 ML VIAL IVP PRN (19:30)
[2017-05-05] MEDS ORDERED: ACETAMINOPHEN 650 MG SUPPOSITORY RC PRN (19:30)
[2017-05-05] MEDS: LORAZEPAM 2 MG/ML 1 ML VIAL IVP PRN ×2 (19:58→23:41)
[2017-05-05 23:54] VITALS: BP 107/55
[2017-05-06 04:00] VITALS: BP 104/50
[2017-05-06 07:00] VITALS: BP 104/57
[2017-05-06 11:00] VITALS: BP 106/53
[2017-05-06 20:00] VITALS: BP 128/59
[2017-05-06] MEDS: LORAZEPAM 2 MG/ML 1 ML VIAL IVP PRN (20:22)
[2017-05-07 07:00] VITALS: BP 116/64
[2017-05-07] MEDS: LORAZEPAM 2 MG/ML 1 ML VIAL IVP PRN ×2 (08:16→22:18)
[2017-05-07] MEDS: MORPHINE SULFATE 2 MG/ML 1ML SYG IVP PRN (16:14)
[2017-05-08] VITALS: BP 135/72
[2017-05-08] MEDS: LORAZEPAM 2 MG/ML 1 ML VIAL IVP PRN ×2 (07:30→22:57)
[2017-05-08 08:00] VITALS: BP 111/59
[2017-05-08] MEDS: MORPHINE SULFATE 2 MG/ML 1ML SYG IVP PRN (16:49)
[2017-05-09] VITALS: BP 107/56
[2017-05-09 08:00] VITALS: BP 108/61
[2017-05-09] MEDS: MORPHINE SULFATE 2 MG/ML 1ML SYG IVP PRN (13:02)
[2017-05-09] MEDS ORDERED: MORPHINE SULFATE 5 MG/ML VIAL IV PRN (13:15)
[2017-05-09] MEDS ORDERED: MORPHINE SULFATE 2 MG/ML 1ML SYG IVP ONE (13:15)
[2017-05-09] MEDS: LORAZEPAM 2 MG/ML 1 ML VIAL IVP PRN (13:24)
[2017-05-09 20:29] VITALS: BP 91/31
[2017-05-09] MEDS ORDERED: MORPHINE SULFATE 8 MG/ML VIAL ONE ×2 (22:05→22:08)
[2017-05-10] MEDS ORDERED: MORPHINE SULFATE 8 MG/ML VIAL ONE (05:06)
[2017-05-10] MEDS: LORAZEPAM 2 MG/ML 1 ML VIAL IVP PRN ×3 (06:31→20:36)
[2017-05-10] MEDS: MORPHINE SULFATE 2 MG/ML 1ML SYG IVP PRN (14:54)
[2017-05-10 20:58] VITALS: BP 100/48
[2017-05-11] MEDS: LORAZEPAM 2 MG/ML 1 ML VIAL IVP PRN ×2 (05:29→12:28)
[2017-05-11 07:00] VITALS: BP 127/60
[2017-05-11 11:00] VITALS: BP 134/101
== END 2017-05-11 14:55 | disposition hospice, home (50) | DRG 871 ==
LOC: 2BH 12:50 → 3DH 18:16
PROVIDERS: ADMIT Internal Medicine Critical Care Medicine; ATTEND Internal Medicine Critical Care Medicine
DX: A41.9 Sepsis, unspecified organism (principal); J18.9 Pneumonia, unspecified organism; J96.90 Respiratory failure, unspecified, unspecified whether with hypoxia or hypercapnia; N17.9 Acute kidney failure, unspecified; G93.40 Encephalopathy, unspecified; J90 Pleural effusion, not elsewhere classified; L89.93 Pressure ulcer of unspecified site, stage 3; D69.6 Thrombocytopenia, unspecified; L97.909 Non-pressure chronic ulcer of unspecified part of unspecified lower leg with unspecified severity; R13.12 Dysphagia, oropharyngeal phase; N18.9 Chronic kidney disease, unspecified; I73.9 Peripheral vascular disease, unspecified; D63.8 Anemia in other chronic diseases classified elsewhere; F41.9 Anxiety disorder, unspecified; I25.10 Atherosclerotic heart disease of native coronary artery without angina pectoris; Z51.5 Encounter for palliative care; Z66 Do not resuscitate; Z86.73 Personal history of transient ischemic attack (TIA), and cerebral infarction without residual deficits; Z95.1 Presence of aortocoronary bypass graft; Z93.1 Gastrostomy status
CPT/HCPCS: J2060; J2270